=== PATIENT | female | born 1960 | race Caucasian/White ===

== ENCOUNTER 2018-07-26 22:22 | Emergency (ER) | payer BC ==
[~2018-07-26] VITALS: Ht 160 cm; Wt 90.7 kg
[~2018-07-26 22:22] MED LIST: ALEN70 PO; ALPR.5 PO; AMOX500 PO; ATEN25 PO; AZAT50 PO; CALCAVITD PO; ESCI10 PO; FERR325 PO; FOSAMAX PO; IBUP600 PO; IRON PO; LISHYD2025; LISI10 PO; MULVITMIND PO; OMEP10ER; OMEP20ER; OXYACE5T PO; POLTRIOPSO OD; POLTRIOPSO OS; PROACE100 PO; PROM25 PO; SERT25; TRIHYD253B PO; [UNRECOGNIZED DRUG - CODE]
== END 2018-07-27 01:36 | disposition home or self-care (01) ==
LOC: ER 22:22
DX: H11.422 Conjunctival edema, left eye (principal); Z88.5 Allergy status to narcotic agent; Z88.8 Allergy status to other drugs, medicaments and biological substances; Z79.899 Other long term (current) drug therapy; Z79.891 Long term (current) use of opiate analgesic; I10 Essential (primary) hypertension; F41.9 Anxiety disorder, unspecified; F32.9 Major depressive disorder, single episode, unspecified
CPT/HCPCS: 99283

== ENCOUNTER 2019-12-14 03:41 | Emergency (ER) | payer BC ==
[~2019-12-14] VITALS: Ht 160 cm; Wt 90.7 kg
[2019-12-14 04:22] LABS: BASOPHILS ABSOLUTE AUTO 0.04 K/mm3 (0.00-0.23); BASOPHILS PERCENT AUTO 0 % (0-2); EOSINOPHILS ABSOLUTE AUTO 0.15 K/mm3 (0.00-0.68); EOSINOPHILS PERCENT AUTO 1 % (0-6); Hematocrit 41.2 % (33.0-51.0); Hemoglobin 13.1 g/dL (11.5-16.0); IMMATURE GRAN ABSOLUTE AUTO 0.06 K/mm3 (0.00-0.10); IMMATURE GRAN PERCENT AUTO 1 % (0-1); LYMPHOCYTES ABSOLUTE AUTO 1.59 K/mm3 (0.84-5.20); LYMPHOCYTES PERCENT AUTO 12 % (21-46); MONOCYTES PERCENT AUTO 5 % (4-13); Mean Corpuscular HGB 30.2 pg (26.0-34.0); Mean Corpuscular HGB Conc 31.8 g/dL (31.5-36.5); Mean Corpuscular Volume 95 fL (80-100); Mean Platelet Volume 9.4 fL (9.1-12.4); NEUTROPHILS ABSOLUTE AUTO 10.57 K/mm3 (1.96-9.15); NEUTROPHILS PERCENT AUTO 81 % (41-73); Platelet Count 265 K/mm3 (150-400); RDW Standard Deviation 56.9 fL (35.1-46.3); Red Blood Cell Count 4.34 M/mm3 (3.80-5.20); White Blood Cell Count 13.11 K/mm3 (4.00-11.30)
[2019-12-14 04:33] LABS: Alanine Aminotransfer (ALT/SGP 35 U/L (12-78); Albumin, Blood 3.9 g/dL (3.4-5.0); Albumin/Globulin Ratio 1.1 (0.8-1.8); Alk Phos 115 U/L (50-136); Anion Gap 7 mmol/L (6-16); Aspartate Aminotrans (AST/SGOT 39 U/L (12-37); Bilirubin, Total 0.4 mg/dL (0.1-1.0); Blood Urea Nitrogen 25 mg/dL (8-24); Bun/Creatinine Ratio 30.2 (12.0-20.0); CO2, Blood 25 mmol/L (21-32); Calcium, Blood 9.1 mg/dL (8.5-10.1); Chloride, Blood 108 mmol/L (98-108); Creatinine, Blood 0.83 mg/dL (0.40-1.00); Globulin, Blood 3.5 g/dL (2.2-4.0); Glomerular Filtration Rate >60 (60-); Glucose, Blood 101 mg/dL (70-99); Potassium, Blood 4.2 mmol/L (3.5-5.5); Sodium, Blood 140 mmol/L (136-145); Total Protein, Blood 7.4 g/dL (6.4-8.2)
[2019-12-14] MEDS ORDERED: ATOR20 PO (08:21)
[2019-12-14] MEDS ORDERED: ACET500 PO (08:21)
[2019-12-14] MEDS ORDERED: DIVA250ER PO (08:22)
[2019-12-14] MEDS ORDERED: DICLOFENAC SOD100 GM TOP (08:22)
[2019-12-14] MEDS ORDERED: FIORINAL 50-321 EACH PO (08:23)
[2019-12-14] MEDS ORDERED: GABA300 PO (08:23)
== END 2019-12-14 09:49 | disposition home or self-care (01) ==
LOC: ER 03:41
PROVIDERS: Emergency Medicine
DX: R56.9 Unspecified convulsions (principal); I10 Essential (primary) hypertension; Z88.5 Allergy status to narcotic agent; Z88.8 Allergy status to other drugs, medicaments and biological substances; Z88.1 Allergy status to other antibiotic agents; Z86.011 Personal history of benign neoplasm of the brain; Z98.890 Other specified postprocedural states; Z79.899 Other long term (current) drug therapy
CPT/HCPCS: 36415; 70450; 72125; 80053; 80177; 85025; 93005; 93010; 96361; 96374; 99284-25; A9270; J1953; J7030

== ENCOUNTER 2020-01-20 05:26 | Emergency (ER) | payer BC ==
[~2020-01-20] VITALS: Ht 160 cm; Wt 90.7 kg
[~2020-01-20 05:26] MED LIST changes: +ACET500 PO; +ATOR20 PO; +DICLOFENAC SOD100 GM TOP; +DIVA250ER PO; +FIORINAL 50-321 EACH PO; +GABA300 PO
[2020-01-20] MEDS ORDERED: GABA300 PO (05:47)
[2020-01-20] MEDS ORDERED: PANT20 PO (05:49)
[2020-01-20] MEDS ORDERED: LEVSOD75 PO (05:49)
[2020-01-20] MEDS ORDERED: QUIN10 PO (05:50)
[2020-01-20 06:30] LABS: Anion Gap 5 mmol/L (6-16); Blood Urea Nitrogen 14 mg/dL (8-24); Bun/Creatinine Ratio 19.6 (12.0-20.0); CO2, Blood 28 mmol/L (21-32); Calcium, Blood 9.8 mg/dL (8.5-10.1); Chloride, Blood 106 mmol/L (98-108); Creatinine, Blood 0.71 mg/dL (0.40-1.00); Glomerular Filtration Rate >60 (60-); Glucose, Blood 90 mg/dL (70-99); Sodium, Blood 139 mmol/L (136-145); Valproic Acid 47.4 ug/mL (50.0-100.0)
== END 2020-01-20 08:05 | disposition home or self-care (01) ==
LOC: ER 05:26
PROVIDERS: Emergency Medicine
DX: R56.9 Unspecified convulsions (principal); I10 Essential (primary) hypertension; Z88.5 Allergy status to narcotic agent; Z88.8 Allergy status to other drugs, medicaments and biological substances; Z88.1 Allergy status to other antibiotic agents; Z87.820 Personal history of traumatic brain injury; Z79.899 Other long term (current) drug therapy
CPT/HCPCS: 80048; 80164; 99284

== ENCOUNTER 2021-05-31 09:46 | Emergency (ER) | payer BC, OTHER ==
[~2021-05-31] VITALS: Ht 160 cm; Wt 98.9 kg
[~2021-05-31 09:46] MED LIST changes: +LEVSOD75 PO; +PANT20 PO; +QUIN10 PO
[2021-05-31] MEDS ORDERED: CEPH500 PO (10:43)
[2021-06-04] MEDS ORDERED: CEPH500 PO (14:42)
[2021-06-04] MEDS ORDERED: NORCO 7.5-3251 EAC1 PO (14:42)
[2021-06-04] MEDS ORDERED: CLIN300 PO (14:42)
== END 2021-05-31 11:00 | disposition home or self-care (01) ==
LOC: ER 09:46
DX: N61.0 Mastitis without abscess (principal); J06.9 Acute upper respiratory infection, unspecified; I10 Essential (primary) hypertension; Z88.5 Allergy status to narcotic agent; Z88.8 Allergy status to other drugs, medicaments and biological substances; Z79.899 Other long term (current) drug therapy
CPT/HCPCS: 99283; A9270

== ENCOUNTER 2022-02-19 08:40 | Emergency (ER) | payer MEDICARE, BC, OTHER ==
[~2022-02-19] VITALS: Ht 160 cm; Wt 102.1 kg
[~2022-02-19 08:40] MED LIST changes: +CEPH500 PO; +CLIN300 PO; +NORCO 7.5-3251 EAC1 PO
== END 2022-02-19 10:05 | disposition home or self-care (01) ==
LOC: ER 08:40
DX: B30.9 Viral conjunctivitis, unspecified (principal); I10 Essential (primary) hypertension; Z88.5 Allergy status to narcotic agent; Z88.8 Allergy status to other drugs, medicaments and biological substances; Z79.899 Other long term (current) drug therapy
CPT/HCPCS: A9270

== ENCOUNTER 2025-04-01 13:35 | Emergency (ER) | payer MEDICARE, BC ==
[~2025-04-01] VITALS: Ht 160 cm; Wt 104.3 kg
[2025-04-01] MEDS ORDERED: Oxybutynin Chlo15 MG PO (13:55)
[2025-04-01] MEDS ORDERED: CELEXA10 MG PO (13:55)
[2025-04-01] MEDS ORDERED: Keppra750 MG PO (13:55)
[2025-04-01] MEDS ORDERED: EUTHYROX100 MC1 PO (13:55)
[2025-04-01] MEDS ORDERED: LORazepam 2 MG/ML 1ML Injection IV ONE ×3 (14:05→16:50)
[2025-04-01 14:50] LABS: BASOPHILS ABSOLUTE AUTO 0.05 K/mm3 (0.00-0.23); BASOPHILS PERCENT AUTO 1 % (0-2); EOSINOPHILS ABSOLUTE AUTO 0.13 K/mm3 (0.00-0.68); EOSINOPHILS PERCENT AUTO 2 % (0-6); Hematocrit 35.2 % (33.0-51.0); Hemoglobin 12.0 g/dL (11.5-16.0); IMMATURE GRAN ABSOLUTE AUTO 0.07 K/mm3 (0.00-0.10); IMMATURE GRAN PERCENT AUTO 1 % (0-1); LYMPHOCYTES ABSOLUTE AUTO 2.04 K/mm3 (0.84-5.20); LYMPHOCYTES PERCENT AUTO 23 % (21-46); MONOCYTES ABSOLUTE AUTO 0.50 K/mm3 (0.16-1.47); MONOCYTES PERCENT AUTO 6 % (4-13); Mean Corpuscular HGB Conc 34.1 g/dL (31.5-36.5); Mean Corpuscular Volume 98 fL (80-100); NEUTROPHILS ABSOLUTE AUTO 5.91 K/mm3 (1.96-9.15); NEUTROPHILS PERCENT AUTO 68 % (41-73); NRBC ABSOLUTE 0.00 K/mm3 (0.00-0.02); NRBC Auto 0.0 /100 WBC (0.0-0.2); Platelet Count 293 K/mm3 (150-400); RDW Coefficient Variation 11.8 % (11.7-14.2); RDW Standard Deviation 42.5 fL (35.1-46.3)
[2025-04-01 15:18] LABS: Alanine Aminotransfer (ALT/SGP 52 U/L (12-78); Albumin, Blood 3.9 g/dL (3.4-5.0); Albumin/Globulin Ratio 1.1 (0.8-1.8); Anion Gap 10 mmol/L (3-11); Aspartate Aminotrans (AST/SGOT 35 U/L (12-37); Bilirubin, Total 0.4 mg/dL (0.1-1.0); Blood Urea Nitrogen 12 mg/dL (8-24); CO2, Blood 24 mmol/L (21-32); Calcium, Blood 8.8 mg/dL (8.5-10.1); Chloride, Blood 103 mmol/L (98-108); Creatinine, Blood 0.59 mg/dL (0.40-1.00); Ethanol (Alcohol), Blood, Med <3 mg/dL; Globulin, Blood 3.5 g/dL (2.2-4.0); Glucose, Blood 113 mg/dL (70-99); Magnesium, Blood 1.9 mg/dL (1.6-2.4); Potassium, Blood 4.0 mmol/L (3.5-5.5); Sodium, Blood 133 mmol/L (136-145); Total Protein, Blood 7.4 g/dL (6.4-8.2)
[2025-04-01] MEDS ORDERED: Ondansetron HCl 2 MG / ML 2ML Vial IV ONE (15:30)
[2025-04-01 15:44] LABS: Source, Urine Clean Catch
[2025-04-01 15:50] LABS: Bilirubin, Urine Neg (Neg); Glucose Qualitative, Urine Neg (Neg); Ketones, Urine Neg (Neg); Leukocyte Esterase, Urine 3+ (Neg); Protein, Urine 1+ (Neg); Specific Gravity, Urine 1.010 (1.003-1.022); Urobilinogen, Urine NORM (Normal)
[2025-04-01 15:59] LABS: Color, Urine Pale Yellow (P-Yellow); Red Blood Cells, Urine 0-2 /hpf (0-2)
[2025-04-01 16:04] LABS: U Amphetamine Screen Not Detected; U Barbiturate Screen Not Detected; U Benzodiazapine Screen Not Detected; U Buprenorphine Screen Not Detected; U Cannabinoids Screen DETECTED; U Cocaine Screen Not Detected; U Methadone Screen Not Detected; U Methamphetamine Screen Not Detected; U Opiates Screen Not Detected; U Oxycodone Screen Not Detected; U Phencyclidine Screen Not Detected
[2025-04-01] MEDS ORDERED: NS 1,000 ML IV SCH (16:05)
[2025-04-01] MEDS ORDERED: VALPROATE SODIUM IV STA (16:29)
[2025-04-01] MEDS ORDERED: NS IV STA (16:29)
[2025-04-01] MEDS ORDERED: Dexamethasone Sod Phos 10 MG/ML 1ML VIAL IV ONE (16:50)
[2025-04-01] MEDS ORDERED: Lacosamide 400 MG IV ONE (16:50)
[2025-04-01] MEDS ORDERED: Lacosamide 200 MG/20 ML 20ML Vial IV ONE (17:00)
[2025-04-01 18:30] VITALS: BP 136/78
== END 2025-04-01 19:22 | disposition short-term general hospital (02) ==
LOC: ER 13:35
PROVIDERS: Emergency Medicine
DX: G40.109 Localization-related (focal) (partial) symptomatic epilepsy and epileptic syndromes with simple partial seizures, not intractable, without status epilepticus (principal); D32.9 Benign neoplasm of meninges, unspecified; I10 Essential (primary) hypertension
CPT/HCPCS: 70450; 70496; 70498; 71045; 80053; 80177; 80320; 81001; 81025; 83605; 83735; 84146; 85025; 93005; 93010; 96365-59; 96375-59; 96376-59; 99285-25; A6590; C9254; J1100; J1953; J2060; J2405; J7030; Q9967